=== PATIENT | male | born 1980 | race Two or more races ===

== ENCOUNTER 2025-03-10 14:48 | Emergency (ER) | payer MEDICAID, SELFPAY ==
[2025-03-10 16:06] VITALS: BP 128/88; PULSE 91; RESP 18; TEMP 36.7; O2SAT 96
--- NOTE | 2025-03-10 16:30 | PD.EDRME ---
Rapid Medical Screening Exam RME Arrival date/time: 03/10/25 14:48 Chief Complaint: Fall Time Seen by Provider: 03/10/25 15:05 Vital signs: Vital Signs Temperature 98.1 F 03/10/25 16:06 Pulse Rate 91 03/10/25 16:06 Respiratory Rate 18 03/10/25 16:06 Blood Pressure 128/88 H 03/10/25 16:06 Pulse Oximetry (%) 96 03/10/25 16:06 Oxygen Delivery Method Room Air 03/10/25 16:06 Vital signs reviewed by provider: Yes RME Narrative: 44-year-old male presents to the ED after a fall on a ladder. He states he was at the top of the ladder, slipped and landed on the top side rail, striking his epigastric area and right upper quadrant area. He is having difficulty breathing and states he is unable to take a deep breath due to the pain. He did not fall to the ground. He denies taking any blood thinners. I have greeted and performed a focused initial assessment of this patient. A comprehensive ED assessment and evaluation of the patient, analysis of all test results, and completion of the medical decision making process will be conducted by additional ED providers. Labs and imaging studies ordered.
--- NOTE | 2025-03-10 16:33 | XR_ITS ---
Examination: CT chest with intravenous contrast CT abdomen with intravenous contrast CT pelvis with intravenous contrast 2-D coronal and sagittal reconstructions Time of exam: March 10, 2025 2009 hrs. Indications: Patient fell off a ladder today with injury to the chest and abdomen, chest pain abdomen pain CTDI: vol (mGy) : 8.03 DLP: (mGycm): 641 Technique: Multiple axial images of the chest, abdomen and pelvis with intravenous contrast, 3.0 mm slice thickness. Images obtained post intravenous injection Isovue 370 60 cc. 2-D sagittal and coronal reconstructions. Low dose protocols were performed. One or more of the following dose reduction techniques were used; automated exposure control, adjustment of the mA and/or KV according to patient size, use of iterative reconstruction technique. Findings: Right sixth and seventh ribs anteriorly are fractured with mild offset Thoracic aorta pulmonary arteries intact No hemopericardium No pneumothorax pulmonary contusion or with mild offset The manubrium the body the sternum intact No thoracic lumbar sacral fracture is noted No liver splenic or renal laceration, no perinephric hematoma Absent gallbladder No pancreatic mass Aorta intact no free blood in the abdomen Negative for pneumoperitoneum Absent appendix No bowel obstruction Urinary bladder intact Bones of the pelvis and hips appear intact Impression: Acute fractures with mild offset right sixth and seventh ribs anteriorly No pneumothorax or hemothorax or hemopericardium Thoracic aorta pulmonary arteries intact No abdominal parenchymal laceration Abdominal aorta intact No free blood in the abdomen and pelvis
[2025-03-10 17:16] LABS: Basophils # (Auto) 0.1 Thou/mm3 (0.0-0.2); Basophils % (Auto) 1 % (0-2.5); Eosinophils # (Auto) 0.1 Thou/mm3 (0.0-0.5); Eosinophils % (Auto) 1 % (0-10); Hematocrit 48.8 % (41.0-53.0); Hemoglobin 18.2 g/dL (13.5-16.0); Immature Granulocytes % (Auto) 1 % (0-0); Immature Granulocytes Auto 0.04 Thou/mm3 (0.00-0.00); Lymphocytes % (Auto) 12 % (10-50); Mean Corpuscular HGB Conc 37.3 g/dl (31.0-37.0); Mean Corpuscular Hemoglobin 31.5 pg (25.0-35.0); Mean Corpuscular Volume 85 fL (80-100); Monocytes # (Auto) 0.5 Thou/mm3 (0.0-0.8); Monocytes % (Auto) 6 % (0-12); Neutrophils # (Auto) 6.6 Thou/mm3 (1.8-7.7); Neutrophils % (Auto) 80 % (37-80); Nucleated Red Blood Cell % 0 /100 WBC (0); Platelet Count 192 Thou/mm3 (140-440); RDW Standard Deviation 39.7 fL (35.1-43.9); Red Blood Count 5.77 Miln/mm3 (4.50-5.90); White Blood Count 8.2 Thou/mm3 (3.8-10.6)
[2025-03-10 17:34] LABS: Alanine Aminotransferase 19 U/L (10-49); Albumin, Serum 4.9 gm/dL (3.5-5.0); Albumin/Globulin Ratio 2.2 (1.2-2.2); Alkaline Phosphatase 131 U/L (46-116); Anion Gap 7 (7-16); Aspartate Amino Transferase 17 U/L (0-34); BUN/Creatinine Ratio 16 Ratio (12-20); Bilirubin,Total 0.6 mg/dL (0.3-1.2); Blood Urea Nitrogen 14 mg/dL (9-23); Calcium 9.8 mg/dL (8.3-10.6); Calcium (Corrected) 9.8 mg/dL (8.5-10.1); Carbon Dioxide 23.7 mMol/L (20.0-31.0); Chloride 108 mMol/L (98-107); Creatinine (Component) 0.9 mg/dL (0.6-1.3); Globulin 2.2 gm/dL (2.3-3.5); Glucose 257 mg/dL (74-106); Osmolality,Calculated 287 (275-295); Potassium 3.8 mMol/L (3.4-5.1); Sodium 139 mMol/L (136-145); Total Protein 7.1 gm/dL (5.7-8.2); eGFR > 60 See Note
[2025-03-10 17:38] LABS: Prothrombin Time 11.1 Seconds (9.0-12.2)
[2025-03-10] MEDS: MORPHINE SULF INJ 10 MG/ML VIAL 5 MG IM (19:11)
[2025-03-10 21:11] VITALS: BP 137/86; PULSE 72; RESP 20; TEMP 36.7; O2SAT 96
--- NOTE | 2025-03-10 21:26 | EDNOTE_ITS ---
ED General RME/HPI General Chief complaint: Fall Stated complaint: FELL OFF LADDER; R) RIB PAIN Time Seen by Provider: 03/10/25 15:05 Arrival date/time: 03/10/25 14:48 CC: Right-sided chest pain right-sided abdomen HPI ongoing for the past 3 hours ago after the patient fell on from the top of an 8 foot ladder directly onto the ladder that fell with him. Patient denies LOC or ALOC denies any contact with the ground with his head and neck. Patient is awake alert oriented localized pain to the chest wall approximately 6-8 on the 10 scale. Patient has no difficulty shortness of breath or cough. RME / HPI RME / HPI narrative: 44-year-old male presents to the ED after a fall on a ladder. He states he was at the top of the ladder, slipped and landed on the top side rail, striking his epigastric area and right upper quadrant area. He is having difficulty breathing and states he is unable to take a deep breath due to the pain. He did not fall to the ground. He denies taking any blood thinners. I have greeted and performed a focused initial assessment of this patient. A comprehensive ED assessment and evaluation of the patient, analysis of all test results, and completion of the medical decision making process will be conducted by additional ED providers. Labs and imaging studies ordered. Related Data Home Medications ?Medication ?Instructions ?Recorded ?Confirmed atorvastatin 20 mg tablet 20 mg PO QDAY High Cholester ol 07/05/23 07/27/23 fenofibrate 160 mg tablet 160 mg PO QDAY High Choleste rol 07/05/23 07/27/23 losartan 50 mg tablet 50 mg PO QDAY High Blood Pre ssure 07/05/23 07/27/23 metformin 1,000 mg tablet 1,000 mg PO AC Diabetes 06/2008/21/23 Previous Rx's ?Medication ?Instructions ?Recorded hydrocodone 5 mg-acetaminophen 325 1 tab PO Q8H PRN pa in #7 tabs 07/10/23 mg tablet insulin glargine 100 unit/mL 20 unit (0.2 mL) subcut Q DAY #10 mL 07/10/23 subcutaneous solution (Lantus U-100 Insulin) lancet with blood glucose test #300 ea 07/10/23 strips and pen needles combo pack metronidazole 500 mg tablet 500 mg PO BID #10 tabs meloxicam 7.5 mg tablet 7.5 mg PO BID #60 tabs 03/10 Allergies Allergy/AdvReac Type Severity Reaction Status Date / Time No Known Allergies Allergy Verified 03/10/25 14:55 Review of Systems Review of Systems Narrative Review of Systems: GEN: No fever, no chills, no weight loss EYES: No discharge, no visual changes, no pain HEENT: No ear pain, no congestion, no sore throat PULM: No shortness of breath, no cough, no congestion CV: +chest pain, no dyspnea on exertion, no palpitations GI: No nausea, no vomiting, no diarrhea, no pain, no constipation : No frequency, no urgency, no dysuria MUSC/SKEL: No joint pain, no back pain SKIN: No rash PSYCH: No hallucinations, no depression HEME/LYMPH: No easy bleeding or bruising tendencies NEURO: No weakness, no headache Past Medical History Past Medical History NEUROLOGIC: Negative Neurological Disorders or Seizures CARDIAC: Positive Hypercholesterolemia and Hypertension; Negative Cardiac Disorders or Congestive Heart Failure RESPIRATORY: Negative Chronic Obstructive Pulmonary Disease (COPD) or Asthma GASTROINTESTINAL: Positive Gastrointestinal Disorders and Gall Bladder Disease GENITOURINARY: Negative Genitourinary Disorders or Renal Disease MUSCULOSKELETAL: Negative Musculoskeletal Disorders ENDOCRINE: Positive Endocrine Disorders and Diabetes Mellitus Type 2; Negative Diabetes Mellitus Type 1 HEMATOLOGIC: Negative Blood Disorders or Sickle Cell Disease OTHER HISTORY: Negative Autoimmune Disease, Blood Transfusions, Anesthesia Reactions or Cancer Family History FAMILY HISTORY: Positive Family Cardiac Disorders, Family Gastrointestinal Problems, Family Cancer and Family Surgery; Negative Family Psychiatric Problems, Family Respiratory Disorders or Family Anesthesia Reaction Social History SMOKING STATUS: Current every day smoker SECOND HAND EXPOSURE: Yes ED Exam Narrative Physical exam: [General: Moderate discomfort not acute distress Head normocephalic no step-off hematoma induration ulceration crepitus or depression. HEENT: Eyes normal pupils are PERRLA EOMs are intact no entrapment. Mouth pink moist membranes uvula is midline swallow symmetrical phonation is normal. No raccoon's eyes hart signs no facial asymmetry no step-off in the upper or lower mandible with palpation no pops or clicks with palpation of the TMJ with mastication. Although the subsystems of HEENT are within acceptable limits Neck is supple nontender, no spinous process tenderness with palpation. Full range of motion flexion extension and rotation. Chest equal chest rise right anterior chest tender to palpation. Respiratory: Clear to auscultation no wheezes crackles or rubs CV: Rate rhythm is regular no murmurs rubs or clicks Abdomen right upper quadrant ecchymosis in a linear fashion to the right upper quadrant is tender to palpation. Positive bowel sounds no masses appreciated no right lower or left side tenderness with palpation no periumbilical tenderness. Back: No CVA tenderness no spinous process tenderness from cervical spine thoracic and lumbar spine Skin: Linear ecchymosis with partial-thickness abrasion to the right upper quadrant of the abdomen. Intact no petechiae rash induration ulceration or crepitus Extremities: Decreased range of motion of the right upper extremity secondary to chest wall pain. Moving all extremity against resistance cap refill less than 2 seconds neurosensory intact Neuro: Awake alert oriented x3 Glascow coma 15 no focal deficits] Course Quality Measures none Orders Category Date Time Status CT Screening NOW Care 03/10/25 16:[address] chest abdomen pelvis w Stat Exams 03/10/25 16:33 Completed CBC Stat Lab 03/10/25 16:50 Completed CMP [Comprehensive Metabolic Panel] Stat Lab 03/10/25 16:50 Completed PT [Prothrombin Time with INR] Stat Lab 03/10/25 16:50 Completed PTT [Partial Thromboplastin Time] Stat Lab 03/10/25 16:50 Completed Morphine Inj Med 03/10/25 16:40 Discontinued 5 mg IM X1 ONE oxyCODONE/APAP 5/325 [Percocet 5/325] Med 03/10/25 21:34 Discontinued 2 tab PO X1 ONE Vital Signs Vital signs: Vital Signs Temperature 98.1 F 03/10/25 16:06 Pulse Rate 91 03/10/25 16:06 Respiratory Rate 18 03/10/25 16:06 Blood Pressure 128/88 H 03/10/25 16:06 Pulse Oximetry (%) 96 03/10/25 16:06 Oxygen Delivery Method Room Air 03/10/25 16:06 Discharge Plan Plan Patient Disposition: HOME (Self Care) Patient condition on transfer: Stable Prescriptions/Referrals Prescriptions/Med Rec: New meloxicam 7.5 mg tablet 7.5 mg PO BID Qty: 60 0RF No Action losartan 50 mg Tablet 50 mg PO QDAY atorvastatin 20 mg Tablet 20 mg PO QDAY metformin 1,000 mg Tablet 1,000 mg PO AC fenofibrate 160 mg Tablet 160 mg PO QDAY insulin glargine [Lantus U-100 Insulin] 100 unit/mL Solution 20 unit subcut QDAY Qty: 10 2RF metronidazole 500 mg tablet 500 mg PO BID Qty: 10 0RF (DME) lancet-gluc test strip-needles Combo Pack See Rx Instructions .Route Qty: 300 0RF Rx Instructions: As directed hydrocodone-acetaminophen 5-325 mg tablet 1 tab PO Q8H MDD 3 tabs PRN (Reason: pain) Qty: 7 0RF Referrals: Luis Loomis MD [Primary Care Provider] - In 1 week Problem List Clinical Impression: Fracture, rib, Fall Patient/Caregiver Discharge Instructions Education Materials: Rib Fracture (Broken Rib) Additional Instructions: Do not bind your chest with a binder. Try and take deep breaths is much as you can. Know that the pain will continue for up to 6 to 8 weeks for complete healing. Take the medication as needed for temporary pain relief. If there is an abrupt onset of shortness of breath or difficulty breathing return the [facility] room immediately for further evaluation. No se venda el pecho con james faja. Intente respirar profundamente lo m?s que pueda. Tenga en cuenta que el dolor persistir? hasta de 6 a 8 semanas para james recuperaci?n completa. [place] el medicamento seg?n sea necesario para un alivio temporal del dolor. Si presenta dificultad para respirar o disnea de forma repentina, acuda a urgencias de inmediato para james evaluaci?n adicional. Print Language: Nepali Stand Alone Forms: [employer] Award Info., Work/School Release, Patient Portal Info Letter PA/EMBOSSING UNIT OPERATOR Supervising Physician PA/EMBOSSING UNIT OPERATOR Supervising Physician: Gordo Wan ENP MDM Patient Acuity High Acuity (complete MDM) and Low Acuity (complete MDM as needed) Clinical Information Provided by: patient Medical Records reviewed [facility] Chronic Illness/Social Conditions which may negatively complicate care or outcome(s)-explain: None or not applicable Labs Lab(s) Interpretation(s): CBC shows no leukocytosis hemoconcentrated with a hemoglobin of 18.2 hematocrit of 48.8. Platelets at 192. Coags within acceptable limits CMP shows a chloride of 108 otherwise no other electrolyte imbalances other than a glucose of 257 no renal impairment transaminitis or T. bili elevation. Imaging Imaging Interpretation(s): CT of the chest abdomen pelvis shows the patient has acute fractures with mild offset of the right 6th and 7th ribs anteriorly no pneumothorax hemothorax her home hemo and cardia sodium aorta intact no parenchymal laceration abdominal aorta is intact. No free blood in the abdomen or pelvis. Medication Administration(s) Medication Administration History Discontinued Medications Morphine Sulfate (Morphine Sulf Inj 10 Mg/Ml Vial) 5 mg IM X1 ONE Stop: 03/10/25 16:41 Last Admin: 03/10/25 19:11 Dose: 5 mg Documented By: KIP Oxycodone/Acetaminophen (Oxycodone/Apap 5/325 Tablet) 2 tab PO X1 ONE Stop: 03/10/25 21:35 Last Admin: 03/10/25 21:47 Dose: 2 tab Documented By: DANK Diagnosis Differential Diagnosis ED Complaint MDM: Pneumothorax pulmonary contusion flail chest
[2025-03-10] MEDS: oxyCODONE/APAP 5/325 TABLET 2 TAB PO (21:47)
== END 2025-03-10 21:50 | disposition home or self-care (01) ==
PROVIDERS: Physician Assistant; Emergency Provider Family Medicine; PCP Family Medicine
DX: S22.41XA Multiple fractures of ribs, right side, initial encounter for closed fracture (principal); W11.XXXA Fall on and from ladder, initial encounter
CPT/HCPCS: 36415; 71260; 74177; 80053; 85025; 85610; 85730; 96372; 99285; A4649; J2270; Q9967; A9270